=== PATIENT | male | born 1975 | race Caucasian/White ===

== ENCOUNTER → 2017-10-08 | Outpatient (CLI) | payer OTHER ==
[~2017-10-08] MED LIST: AMBIEN10 M1 PO; ARMOUR THYROID60 M1 PO; ATENOLOL25 M1 PO; CLONAZEPAM1 MG PO; CORTEF20 MG PO; DDAVP0.1 MG PO; DOXYCYCLINE HY100 MG PO; EFFEXOR100 MG PO; LOVAZA1 GM PO; MINIPRESS1 MG PO; NEXIUM40 MG PO; NORDITROPI5 MG/1.52 SC; OXAYDO5 MG PO; REMERON15 M2 PO; TESTOSTERONE IM; TRAZODONE HCL50 MG PO; ZOFRAN4 MG PO; ZOVIRAX800 M1 PO
== END | disposition home or self-care (01) ==
LOC: PICC 12:08
DX: B44.9 Aspergillosis, unspecified (principal)
CPT/HCPCS: 76937